=== PATIENT | female | born 1960 | race Caucasian/White ===

== ENCOUNTER 2017-03-30 08:39 | Emergency (ER) | payer BC ==
[2017-03-30 09:18] VITALS: BP 101/56
--- NOTE | 2017-03-30 10:16 | UC ---
General HPI - HPI Summary HPI Summary: 56 yo female c/o approx 2 days cough (minimal productive), fever, achy. Feels bad all over. No GI sx. No rash. Works at a college, several potential sick contacts. + tobacco, but minimal lately. - History of Current Complaint Chief Complaint: UCRespiratory Stated Complaint: COUGH/CHEST CONGESTION Time Seen by Provider: 03/30/17 09:49 Hx Obtained From: Patient Onset/Duration: Sudden Onset Pain Intensity: 10 - Allergy/Home Medications Allergies/Adverse Reactions: Allergies Allergy/AdvReac Type Severity Reaction Status Date / Time codeine Allergy Unknown Vomiting Verified 03/30/17 09:06 sulfamethoxazole Allergy Unknown Hives Verified 03/30/17 09:06 [From Bactrim] trimethoprim [From Bactrim] Allergy Unknown Hives Verified 03/30/17 09:06 Home Medications: Home Medications Dextromethorphan Polistirex [Delsym] 30 mg PO PRN 03/30/17 [History] Dm/PE/Acetaminophen/Chlorphenr [[place] Plus Cold &] 1 cap PO PRN 03/30/17 [History] Pimozide 6 mg PO DAILY 03/30/17 [History Confirmed 03/30/17] PMH/Surg Hx/FS Hx/Imm Hx Previously Healthy: Yes - Surgical History Surgical History: Yes Surgery Procedure, Year, and Place: R knee. hernia repair - Family History Known Family History: Positive: None Negative: Hypertension - Social History Alcohol Use: Rare Substance Use Type: None Smoking Status (MU): Heavy Every Day Tobacco Smoker Type: Cigarettes Amount Used/How Often: 1/2 ppd Length of Time of Smoking/Using Tobacco: on/off since a teen Have You Smoked in the Last Year: Yes Household Exposure Type: Cigarettes - Immunization History Most Recent Influenza Vaccination: [id number] Review of Systems Constitutional: Fever, Fatigue Skin: Other - achy Eyes: Negative ENT: Sore Throat, Nasal Discharge, Sinus Congestion Respiratory: Cough Cardiovascular: Negative Gastrointestinal: Negative Genitourinary: Negative Motor: Negative Neurovascular: Negative Musculoskeletal: Myalgia Neurological: Negative Psychological: Negative Is Patient Immunocompromised?: No All Other Systems Reviewed And Are Negative: Yes Physical Exam Triage Information Reviewed: Yes Appearance: Thin - sitting up. conversing easily and appropriately. NAD. Vital Signs: Initial Vital Signs Temp 98 F 03/30/17 09:11 Pulse 65 03/30/17 09:11 Resp 16 03/30/17 09:11 BP 101/56 03/30/17 09:11 Pulse Ox 97 03/30/17 09:11 Vital Signs Reviewed: Yes Eye Exam: Normal ENT: Positive: Pharyngeal erythema - post pharynx red, no sores appreciated. Uvula midline., Nasal congestion, TM dull Neck exam: Normal Neck: Positive: Supple, Nontender, No Lymphadenopathy Respiratory Exam: Normal Respiratory: Positive: Chest non-tender, Lungs clear, Normal breath sounds, No respiratory distress, No accessory muscle use Cardiovascular Exam: Normal Cardiovascular: Positive: RRR, No Murmur, Pulses Normal, Brisk Capillary Refill Abdominal Exam: Normal Abdomen Description: Positive: Nontender Musculoskeletal Exam: Normal Neurological Exam: Normal Psychological Exam: Normal - conversing easily and approciately. Skin Exam: Normal Course/Dx - Course Course Of Treatment: Reviewed results with pt., reviewed coa / tx plan. Pt reports that she is scheduled to work this week, but has next Sun / Sat off. Work note until Sunday next week. She requests rx diflucan, as she is prone. Questions as posed answered to the best of my ability. - Differential Dx - Multi-Symptom Provider Diagnoses: Influenza B Discharge - Discharge Plan Condition: Stable Disposition: HOME Prescriptions: Albuterol HFA INHALER* [Ventolin HFA Inhaler*] 1 - 2 puff INH Q6H PRN #1 mdi PRN Reason: Wheezing Fluconazole [Diflucan 150 MG (NF)] 150 mg PO DAILY 2 Days #2 tab Oseltamivir CAP* [Tamiflu CAP*] 75 mg PO BID #10 cap Patient Education Materials: How to Stop Smoking (ED), Influenza (ED) Forms: *Work Release Referrals: No Primary Care Phys,NOPCP [Primary Care Provider] - Additional Instructions: Drink plenty of fluids. Please seek medical attention for worse or new problems.
== END 2017-03-30 10:52 | disposition home or self-care (01) ==
LOC: UCCORT 08:39
DX: J10.1 Influenza due to other identified influenza virus with other respiratory manifestations (principal); F17.210 Nicotine dependence, cigarettes, uncomplicated
CPT/HCPCS: 87502; 87651; 99212; G0463